=== PATIENT | female | born 2000 | race Caucasian/White ===

== ENCOUNTER 2020-09-07 20:45 | Emergency (ER) | payer OTHER ==
--- NOTE | 2020-09-07 20:57 | ED Physician Documentation ---
PD HPI FEMALE - Stated complaint Stated Complaint: F - Chief complaint Chief Complaint: UTI - History obtained from History obtained from: Patient - History of Present Illness Timing - onset: How many days ago (2-3) Timing - duration: Days (2-3) Timing - details: Gradual onset, Still present Associated symptoms: Back pain, Dysuria, Urinary frequency, Hematuria (today). No: Fever, Genital sore/lesion Contributing factors: No: , Exposed to STD Similar symptoms before: No diagnosis (She states she had to had bladder infection when she was younger. Otherwise she had been having some dysuria and frequency over the past month or so. She had been referred to urology and had a visit there with no signs of infection at the time.) Recently seen: Not recently seen Review of Systems Constitutional: denies: Fever, Chills Nose: denies: Rhinorrhea / runny nose, Congestion Throat: denies: Sore throat Respiratory: denies: Cough GI: denies: Nausea, Vomiting : reports: Dysuria, Frequency. denies: Discharge, Irregular menses Skin: denies: Rash, Lesions PD PAST MEDICAL HISTORY - Past Medical History Past Medical History: No - Present Medications Home Medications: Ambulatory Orders Medication Instructions Recorded Confirmed Cephalexin [Keflex] 500 mg PO TID #20 capsule 09/07/20 Naproxen 375 mg PO TID #15 tablet 09/07/20 Phenazopyridine HCl [Pyridium] 100 mg PO TID PRN #15 tablet 09/07/20 - Allergies Allergies/Adverse Reactions: Allergies Allergy/AdvReac Type Severity Reaction Status Date / Time No Known Drug Allergies Allergy Verified 09/07/20 20:52 PD ED PE NORMAL - Vitals Vital signs reviewed: Yes - General General: Alert and oriented X 3, No acute distress, Well developed/nourished - Cardiac Cardiac: RRR, No murmur - Respiratory Respiratory: Clear bilaterally - Abdomen Abdomen: Soft, Non tender - Female Female : Deferred - Rectal Rectal: Deferred - Back Back: No CVA TTP - Derm Derm: Normal color, Warm and dry Results - Vitals Vitals: Vital Signs - 24 hr 09/07/20 09/07/20 20:47 22:29 Temperature 36.8 C Heart Rate 92 84 Respiratory 16 16 Rate Blood Pressure 113/72 113/78 O2 Saturation 100 100 Oxygen O2 Source Room air - Labs Labs: Laboratory Tests 09/07/20 21:39 Urine Color YELLOW Urine Clarity HAZY Urine pH 6.0 Ur Specific [place] >=1.030 H Urine Protein 100 H Urine Glucose (UA) NEGATIVE Urine Ketones NEGATIVE Urine Occult Blood LARGE H Urine Nitrite POSITIVE H Urine Bilirubin NEGATIVE Urine Urobilinogen 1 (NORMAL) Ur Leukocyte Esterase SMALL H Urine RBC TNTC H Urine WBC >25 H Ur Squamous Epith Cells FEW Squamous Urine Bacteria Few Ur Microscopic Review INDICATED Urine Culture Comments INDICATED Urine HCG, Qual NEGATIVE PD MEDICAL DECISION MAKING - ED course Complexity details: considered differential (At this point, the urine does show signs of infection including nitrates and leukocytes. We will treated as a UTI. She had been having some dysuria and frequency previously without infection though so consider the possibility of some interstitial cystitis. We can treat with Pyridium and NSAIDs.), d/w patient Departure - Departure Disposition: Home, Self Care Clinical Impression: Urinary tract infection Qualifiers: Urinary tract infection type: acute cystitis Hematuria presence: with hematuria Qualified Code(s): N30.01 - Acute cystitis with hematuria Condition: Stable Record reviewed to determine appropriate education?: Yes Instructions: ED UTI Cystitis Female Follow-Up: RICK ANDRADE MD [Primary Care Provider] - Prescriptions: Cephalexin [Keflex] 500 mg PO TID #20 capsule Naproxen 375 mg PO TID #15 tablet Phenazopyridine HCl [Pyridium] 100 mg PO TID PRN #15 tablet PRN Reason: Abdominal Pain Comments: Your urine test does show an apparent infection. We will treat this with cephalexin antibiotic as directed for a week. You can also use phenazopyridine 3-4 times a day to help with urinary discomfort. I will turn your urine orange- colored so not to worry when it does. Also use an anti-inflammatory of naproxen twice daily for a week with food to decrease some of the inflammation and pain. Stay well-hydrated. Recheck if not improving well over the next several days. Follow-up with the urologist as planned next month. The urine culture will result in 2 days or so and we will see if we need to change antibiotics based on that. This is uncommon to need to change antibiotics. Discharge Date/Time: 09/07/20 22:30
[2020-09-07] MEDS ORDERED: cephALEXin 250 MG CAPSULE PO STA (21:53)
[2020-09-07] MEDS ORDERED: NAPROXEN 250 MG TABLET PO STA (21:53)
[2020-09-07] MEDS ORDERED: PHENAZOPYRIDINE 100 MG TABLET PO STA (21:53)
[2020-09-07 21:55] LABS: BILIRUBIN,URINE NEGATIVE (NEGATIVE); GLUCOSE, URINE (UA) NEGATIVE (NEGATIVE); KETONES,URINE (UA) NEGATIVE (NEGATIVE); LEUKOCYTE ESTERASE, URINE SMALL (NEGATIVE); NITRITE,URINE POSITIVE (NEGATIVE); OCCULT BLOOD,URINE LARGE (NEGATIVE); PROTEIN,URINE 100 mg/dL (NEGATIVE); UROBILINOGEN,URINE 1 (NORMAL) E.U./dL (NORMAL)
[2020-09-07 21:56] LABS: CLARITY,URINE HAZY (CLEAR); HCG UR QUAL NEGATIVE
[2020-09-07 21:57] LABS: BACTERIA,URINE Few /HPF (None Seen); RBC,URINE TNTC /HPF (0-5); SQUAMOUS EPITHELIAL CELL,UR FEW Squamous (<= Few)
[2020-09-07 22:30] VITALS: BP 113/78
== END 2020-09-07 22:30 | disposition home or self-care (01) ==
LOC: ED 20:45
DX: N30.01 Acute cystitis with hematuria (principal)
CPT/HCPCS: 81001; 81025; 87086; 87181; 99283; A9270; 81003